=== PATIENT | male | born 1965 | race Caucasian/White ===

== ENCOUNTER → 2022-02-05 | Outpatient (CLI) | payer OTHER ==
[~2022-02-05] MED LIST: AUGMENTIN 875-1 EACH PO; HYDROCHLOROTHIA25 MG PO
== END ==
LOC: HEART CORB 13:51
DX: I73.9 Peripheral vascular disease, unspecified (principal)

== ENCOUNTER → 2022-03-20 | Outpatient (CLI) | payer OTHER | LOC: CT 02-15 15:30 | DX: I73.9 Peripheral vascular disease, unspecified (principal); R68.89 Other general symptoms and signs; I77.1 Stricture of artery | CPT/HCPCS: 75635; Q9967 ==